=== PATIENT | female | born 1990 | race Caucasian/White ===

== ENCOUNTER 2023-12-02 10:57 | Emergency (ER) | payer MEDICAID ==
[~2023-12-02] VITALS: Ht 160 cm; Wt 64.0 kg
[2023-12-02 11:52] LABS: APPEARANCE,URINE CLOUDY (CLEAR); BILIRUBIN,URINE NEGATIVE (NEGATIVE); BLOOD, URINE 3+ Ery/uL (NEGATIVE); COLOR,URINE YELLOW (YELLOW); KETONES,URINE NEGATIVE (NEGATIVE); LEUKOCYTE ESTERASE ,URINE 3+ (NEGATIVE); NITRITE, URINE POSITIVE (NEGATIVE); PROTEIN,URINE 2+ mg/dl (NEGATIVE); UGLUCOSE NEGATIVE (NEGATIVE)
[2023-12-02 11:55] LABS: PREGNANCY TEST URINE QUAL NEGATIVE (NEGATIVE)
[2023-12-02 12:00] LABS: BASOPHILS % (AUTO) 0.2 % (0.0-2.0); EOSINOPHILS # (AUTO) 0.1 K/uL (0.0-0.7); EOSINOPHILS % (AUTO) 0.5 % (0.0-6.0); HEMATOCRIT 40 % (33-45); HEMOGLOBIN 13.1 g/dL (11.5-14.8); LYMPHOCYTES # (AUTO) 1.6 K/uL (0.8-4.8); LYMPHOCYTES % (AUTO) 13.2 % (20.0-44.0); MEAN CORPUSCULAR HEMOGLOBIN 32 PG (26.0-33.0); MEAN CORPUSCULAR HGB CONC 33 g/dl (31.0-36.0); MEAN CORPUSCULAR VOLUME 97 fL (82-100); MONOCYTES # (AUTO) 0.9 K/uL (0.1-1.30); MONOCYTES % (AUTO) 7.3 % (2.0-12.0); NEUTROPHILS # (AUTO) 9.6 K/uL (1.8-8.9); NEUTROPHILS % (AUTO) 78.8 % (43.0-81.0); PLATELET COUNT (AUTO) 326 K/uL (150-450); RED BLOOD CELL COUNT(AUTO) 4.13 MIL/uL (4.0-5.2); RED CELL DISTRIBUTION WIDTH 14.4 % (11.5-15.0); WHITE BLOOD COUNT (AUTO) 12.1 K/uL (4.3-11.0)
[2023-12-02 12:10] LABS: CREATININE 0.8 mg/dL (0.6-1.3); POTASSIUM 3.7 mmol/L (3.5-5.1)
[2023-12-02 12:19] LABS: ALBUMIN 3.7 g/dL (3.4-5.0); BILIRUBIN,DIRECT 0.1 mg/dL (0.0-0.2); BILIRUBIN,TOTAL 0.7 mg/dL (0.2-1.0); TOTAL PROTEIN, SERUM 7.4 g/dL (6.4-8.2)
[2023-12-02] MEDS ORDERED: IOHEXOL-300 100 ML VIAL IV ONE (12:21)
[2023-12-02] MEDS ORDERED: IV NS 0.9% 250 ML IV ONE (12:22)
[2023-12-02 12:58] LABS: ADD URINE CULTURE YES; BACTERIA,URINE Moderate /HPF (None Seen); SQUAMOUS EPITHELIAL CELL,UR Moderate /HPF (None Seen); WBC,URINE 81-100 /HPF (0-3)
[2023-12-02] MEDS ORDERED: NITR100C6 PO (13:06)
[2023-12-02 13:16] VITALS: BP 116/72; TEMP 98; O2SAT 100
== END 2023-12-02 13:16 | disposition home or self-care (01) ==
LOC: ER 10:57
DX: N39.0 Urinary tract infection, site not specified (principal); R10.31 Right lower quadrant pain
CPT/HCPCS: 99285; 74177; 85025; 80048; 87086; 83690; 80076; 84703; 81001; 36415; J7050; Q9967